=== PATIENT | male | born 1945 | race Caucasian/White ===

== ENCOUNTER 2021-11-22 16:09 | Emergency (ER) | payer OTHER, MEDICARE ==
[~2021-11-22] VITALS: Ht 175.3 cm; Wt 79.4 kg
[~2021-11-22 16:09] MED LIST: ALBU17AE13 NS; ASPI-1155 PO; BACL10TA PO; BREX0.5T PO; CARB-290 PO; DULO60CA42 PO; GABA-529 PO; IPRA30SP NS; LEVO750T45 PO; LITH300C2 PO; LOSA50TA3 PO; MULT-634 PO; NITR-85 PO; PRIM50TA27 PO; TEMA15CA5 PO; TRAZ-250 PO; VIBE75TA PO
[2021-11-22 16:30] VITALS: BP_SYST 104
--- NOTE | 2021-11-22 16:30 | NUR ---
Patient to [facility] for evaluation.
--- NOTE | 2021-11-22 16:32 | NUR ---
Patient brought in accompanied by [facility]IK[facility]'s department for medical clearance for history of htn and parkinsons. Patient denies any complaints. Denies any pain
--- NOTE | 2021-11-22 16:40 | NUR ---
ER at bedside examining patient.
--- NOTE | 2021-11-22 17:30 | NUR ---
Patient and dance therapist's deputy given written and verbal discharge instructions and verbalizes understanding. ER MD discussed with patient the results and treatment provided. Patient in stable condition. ID arm band removed. Patient educated on pain management and to follow up with PMD. Pain Scale 0/10 Opportunity for questions provided and answered.
--- NOTE | 2021-11-22 22:00 | NUR ---
Pt BIB mom C/O left earache Pt AOX4 VSS Verbally responsive Able to make needs known Will continue to monitor
[2021-11-22 23:28] VITALS: BP_SYST 130
--- NOTE | 2021-11-22 23:30 | NUR ---
Pt DC per MD's order DC instructions and prescription given to pt Pt DC per MD's order Mother verbalized understandings Pt AOX4 VSS Verbally responsive Able to make needs known Pt exited ED in stable condition
== END 2021-11-22 23:28 ==
LOC: SED 16:09
DX: Z02.89 Encounter for other administrative examinations (principal); I10 Essential (primary) hypertension; Z79.899 Other long term (current) drug therapy
CPT/HCPCS: 99283

== ENCOUNTER 2023-04-12 14:51 | Inpatient (IN) | payer OTHER, MEDICARE ==
[~2023-04-12] VITALS: Ht 175.3 cm; Wt 80.3 kg
[2023-04-12 04:00] VITALS: BP_SYST 155; PULSE 82; RESP 22; TEMP 98.9; O2SAT 97
[~2023-04-12 14:51] MED LIST changes: +ACET-1 PO; +AMLO5TAB4 PO; -BACL10TA PO; -BREX0.5T PO; +CARB-15 PO; -CARB-290 PO; -DULO60CA42 PO; +FOLI-43 PO; -GABA-529 PO; +GABA800T PO; +HYOS0.1275 PO; -IPRA30SP NS; -LEVO750T45 PO; -LITH300C2 PO; +LORA-259 SL; -LOSA50TA3 PO; -NITR-85 PO; +OXYC-117 PO; -PRIM50TA27 PO; +SER25 PO; +TRAM50TA2 PO
[2023-04-12 14:53] VITALS: BP_SYST 150; PULSE 100; RESP 22; TEMP 98.3; O2SAT 94
[2023-04-12] MEDS ORDERED: guaiFENesin/DEXTROMETHORPHAN 10 ML UDC PO ONE (15:15)
[2023-04-12] MEDS ORDERED: ALBUTEROL SULFATE 0.083% 2.5 MG/3 ML VIAL.NEB INH ONE (15:15)
[2023-04-12] MEDS ORDERED: DEXAMETHASONE SOD PHOSPHATE 10 MG/ML VIAL IVP ONE (15:15)
[2023-04-12] MEDS ORDERED: NACL 0.9% 1,000 ML IV ONE (15:15)
[2023-04-12] MEDS ORDERED: LORazepam 2 MG/ML VIAL IVP ONE (15:30)
[2023-04-12 15:49] LABS: BASOPHILS % (AUTO) 0.3 % (0.0-2.0); EOSINOPHILS # (AUTO) 0.1 K/uL (0.0-0.4); EOSINOPHILS % (AUTO) 0.6 % (0.0-4.0); HEMATOCRIT 36.4 % (36-54); HEMOGLOBIN 12.3 g/dL (14.0-18.0); LYMPHOCYTES % (AUTO) 11.6 % (20.5-51.5); MEAN CORPUSCULAR HEMOGLOBIN 32 pg (27-31); MEAN CORPUSCULAR HGB CONC 34 % (32-36); MEAN CORPUSCULAR VOLUME 94 fL (79.0-98.0); MONOCYTES # (AUTO) 0.8 K/uL (0.0-1.0); MONOCYTES % (AUTO) 9.7 % (1.7-9.3); NEUTROPHILS # (AUTO) 6.5 K/uL (1.8-7.7); NEUTROPHILS % (AUTO) 77.8 % (40.0-70.0); PLATELET COUNT (AUTO) 204 K/uL (130-430); RED BLOOD CELL COUNT(AUTO) 3.88 MIL/uL (4.2-6.2); RED CELL DISTRIBUTION WIDTH 14.6 % (9.0-15.0); WHITE BLOOD COUNT (AUTO) 8.3 K/uL (4.8-10.8)
[2023-04-12 15:54] LABS: ALANINE AMINOTRANSFERASE 18 U/L (12-78); ALBUMIN 3.2 g/dL (3.4-4.8); ANION GAP 4 (5-15); ASPARTATE AMINOTRANSFERASE 19 U/L (10-37); CALCIUM 8.3 mg/dL (8.4-11.0); CARBON DIOXIDE 32 mmol/L (23-29); CHLORIDE 101 mmol/L (98-107); CREATININE 1.13 mg/dL (0.55-1.30); GLUCOSE 115 mg/dL (74-106); POTASSIUM 4.5 mmol/L (3.5-5.1); SODIUM SERUM 137 mmol/L (136-145); TOTAL BILIRUBIN 0.2 mg/dL (0.0-1.0); TOTAL PROTEIN, SERUM 6.6 g/dL (6.4-8.3); UREA NITROGEN, BLOOD 16 mg/dL (8-21)
[2023-04-12 15:56] LABS: PROTHROMBIN TIME 10.7 SECS (9.5-12.5)
[2023-04-12 15:57] LABS: BILIRUBIN,DIRECT 0.1 mg/dL (0.0-0.3)
[2023-04-12] MEDS ORDERED: cefTRIAXone 1 GM in D5W 50 ML IV ONE (16:45)
[2023-04-12] MEDS ORDERED: AZITHROMYCIN 500 MG in NS 250 ML IV ONE (16:45)
[2023-04-12 16:53] LABS: BILIRUBIN,URINE NEGATIVE (NEGATIVE); BLOOD, URINE NEGATIVE (NEGATIVE); CLARITY/URINE CLEAR (CLEAR); COLOR,URINE YELLOW (YELLOW); GLUCOSE,URINE NEGATIVE (NEGATIVE); KETONES,URINE NEGATIVE (NEGATIVE); LEUKOCYTE ESTERASE ,URINE NEGATIVE (NEGATIVE); NITRITE, URINE NEGATIVE (NEGATIVE); PROTEIN URINE NEGATIVE (NEGATIVE); UROBILINOGEN,URINE 0.2 (0.2-1.0)
[2023-04-12 17:06] LABS: INFLUENZA TYPE A Negative (NEGATIVE); INFLUENZA TYPE B NEGATIVE (NEGATIVE)
[2023-04-12] MEDS ORDERED: AZITHROMYCIN 500 MG/VIAL (ZITHROMAX) IV ONE (17:12)
[2023-04-12] MEDS ORDERED: ALBU10.7 (17:40)
[2023-04-12] MEDS ORDERED: ALPR0.5T8 PO (17:40)
[2023-04-12] MEDS ORDERED: QUET300T20 PO (17:40)
[2023-04-12] MEDS ORDERED: LOSA50TA28 PO (17:40)
[2023-04-12] MEDS ORDERED: KETOROLAC TROMETHAMINE 30 MG VIAL IVP ONE (18:30)
[2023-04-12] MEDS ORDERED: cefTRIAXone 1 GM VIAL ONE (18:32)
[2023-04-12] MEDS ORDERED: DIVA500T4 PO (19:03)
[2023-04-12 20:00] VITALS: BP_SYST 170; PULSE 84; RESP 20; TEMP 100.2
[2023-04-12] MEDS ORDERED: cloNIDine HCL 0.2 MG TABLET PO ONE (20:45)
[2023-04-12] MEDS ORDERED: IPRATROPIUM/ALBUTEROL SULFATE 3 ML AMPUL.NEB (DUONEB) INH PRN ×2 (20:45→23:15)
[2023-04-12 20:56] VITALS: BP_SYST 170; PULSE 84; RESP 20; TEMP 100.2; O2SAT 93
[2023-04-12] MEDS ORDERED: methylPREDNISolone SOD SUCC/PF 62.5 MG/ML VIAL IVP ONE (21:00)
[2023-04-12] MEDS ORDERED: ALPRAZolam 0.25 MG TABLET PO ONE (22:15)
[2023-04-12] MEDS ORDERED: HYOSCYAMINE SULFATE 0.125 MG TABLET PO SCH (22:45)
[2023-04-12] MEDS ORDERED: traMADol HCL HCL 50 MG TABLET (ULTRAM) PO PRN (22:45)
[2023-04-12] MEDS ORDERED: DIVALPROEX SODIUM 500 MG TAB.SR.24H (DEPAKOTE ER) PO SCH (22:45)
[2023-04-12] MEDS ORDERED: amLODIPine BESYLATE 5 MG TABLET PO SCH (22:45)
[2023-04-12] MEDS ORDERED: CARBIDOPA PO SCH (22:45)
[2023-04-12] MEDS ORDERED: LEVODOPA PO SCH (22:45)
[2023-04-12] MEDS ORDERED: OXYCODONE/ACETAMINOPHEN 5-325 TABLET PO SCH (22:45)
[2023-04-12] MEDS ORDERED: LORazepam 1 MG TABLET SL SCH (22:45)
[2023-04-12] MEDS ORDERED: GABAPENTIN 400 MG CAPSULE PO SCH (22:45)
[2023-04-12] MEDS ORDERED: cefTRIAXone 1 GM in D5W 50 ML IV SCH (23:15)
[2023-04-12] MEDS ORDERED: AZITHROMYCIN 500 MG in NS 250 ML IV SCH (23:15)
[2023-04-13 00:39] VITALS: BP_SYST 151; PULSE 76; RESP 18; TEMP 97.6; O2SAT 96
[2023-04-13 01:20] VITALS: BP_SYST 170; PULSE 86; O2SAT 93
[2023-04-13] MEDS ORDERED: AZITHROMYCIN 500 MG/VIAL (ZITHROMAX) IV ONE (02:46)
[2023-04-13] MEDS ORDERED: cefTRIAXone 1 GM VIAL ONE (02:46)
[2023-04-13] MEDS ORDERED: CARB-93 PO (07:27)
[2023-04-13 07:30] VITALS: O2SAT 96
[2023-04-13] MEDS ORDERED: DIVA-74 PO (08:33)
[2023-04-13] MEDS ORDERED: ALPRAZolam 0.25 MG TABLET PO SCH (09:00)
[2023-04-13] MEDS ORDERED: FOLIC ACID 1 MG TABLET PO SCH (09:00)
[2023-04-13] MEDS ORDERED: ASPIRIN 81 MG TAB.CHEW PO SCH (09:00)
[2023-04-13] MEDS ORDERED: DIVALPROEX SODIUM 500 MG TABLET( DEPAKOTE) PO SCH (09:00)
[2023-04-13] MEDS ORDERED: QUEtiapine FUMARATE 25 MG TABLET PO SCH (09:00)
[2023-04-13] MEDS ORDERED: CARBIDOPA/LEVODOPA 25/250 MG TABLET PO SCH (09:00)
[2023-04-13] MEDS ORDERED: LOSARTAN POTASSIUM 50 MG TABLET (COZAAR) PO SCH (09:00)
[2023-04-13] MEDS ORDERED: MULTIVITAMINS TAB 1 TABLET PO SCH (09:00)
[2023-04-13] MEDS ORDERED: NON-FORMULARY MEDICATION (Vibegron (Gemtesa) 1 TAB) PO SCH (09:00)
[2023-04-13] MEDS ORDERED: IPRATROPIUM/ALBUTEROL SULFATE 3 ML AMPUL.NEB (DUONEB) INH SCH (09:00)
[2023-04-13] MEDS ORDERED: METHYLPREDNISOLONE SOD SUCC 40 MG/ML VIAL IVP SCH (09:00)
[2023-04-13] MEDS ORDERED: QUEtiapine FUMARATE 100 MG TABLET PO SCH ×2 (18:00)
[2023-04-13] MEDS ORDERED: traZODone HCL 50 MG TABLET (DESYREL) PO SCH (21:00)
== END 2023-04-13 08:35 | disposition left against medical advice (07) | DRG 193 ==
LOC: SED 14:51 → STU 17:01
PROVIDERS: ADMIT Internal Medicine; ATTEND Internal Medicine
DX: J18.9 Pneumonia, unspecified organism (principal); J96.21 Acute and chronic respiratory failure with hypoxia; J44.1 Chronic obstructive pulmonary disease with (acute) exacerbation; E44.1 Mild protein-calorie malnutrition; J44.0 Chronic obstructive pulmonary disease with (acute) lower respiratory infection; I45.2 Bifascicular block; Z20.822 Contact with and (suspected) exposure to COVID-19; G20.A1 Parkinson's disease without dyskinesia, without mention of fluctuations; G89.4 Chronic pain syndrome; I10 Essential (primary) hypertension; Z53.29 Procedure and treatment not carried out because of patient's decision for other reasons; Z79.82 Long term (current) use of aspirin; Z79.899 Other long term (current) drug therapy; Z68.26 Body mass index [BMI] 26.0-26.9, adult
CPT/HCPCS: 36415; 71045; 80048; 80076; 81001; 81003; 83605; 83880; 84484; 85025; 85610-TC; 85730-TC; 87040; 87086; 93005; 94640; 96374; 99285; G0378; J0456; J0696; J1030; J1100; J1885; J2060; J2930; J7050; J7060